=== PATIENT | female | born 1980 | race Caucasian/White ===

== ENCOUNTER 2022-07-10 11:38 | Outpatient (CLI) | payer OTHER, SELFPAY ==
[2022-07-10 14:02] LABS: Basophils Absolute Auto 0.03 K/uL (0.00-0.30); Basophils Percent Auto 0.4 % (0.0-3.0); Eosinophils Absolute Auto 0.33 K/uL (0.00-0.50); Eosinophils Percent Auto 4.4 % (0.0-7.0); Hematocrit 42.2 % (33.0-51.0); Hemoglobin* 14.1 gm/dL (12.0-16.0); Immature Granulocytes Abs Auto 0.03 K/uL (0.00-0.30); Immature Granulocytes Pct Auto 0.4 %; Lymphocytes Percent Auto 26.6 % (20-44); Mean Corpuscular HGB Conc 33 gm/dL (32-36); Mean Corpuscular Hemoglobin 30 pg (26-34); Mean Corpuscular Volume 89 fL (80-100); Monocytes Percent Auto 5.2 % (0.0-11.0); Neutrophils Absolute Auto 4.74 K/uL (1.7-7.0); Platelet Count* 288 K/uL (140-440); RDW Coefficient of Variation % 11.8 % (11.5-15.5); Red Blood Count 4.75 m/uL (4.00-5.20); White Blood Count* 7.52 K/uL (4.50-11.00)
[2022-07-10 14:03] LABS: Slide Review Reflex No
[2022-07-10 14:19] LABS: Chloride* 103 mmol/L (96-114); Potassium* 4.2 mmol/L (3.6-5.1); Sodium* 141 mmol/L (135-149)
[2022-07-10 14:22] LABS: Blood Urea Nitrogen* 15 mg/dL (5-24); Carbon Dioxide* 26 mmol/L (20-32); Creatinine* 0.7 mg/dL (0.5-1.5); Estimated Glomerular Filt Rate 111 ml/min; Glucose* 83 mg/dL (60-115)
[2022-07-10 14:23] LABS: Calcium* 9.6 mg/dL (8.4-10.6); Vitamin D 25 Hydroxy* 51 ng/mL (30-80)
[2022-07-10 14:54] LABS: Vitamin B12* 527 pg/mL (243-894)
[2022-07-11 23:15] LABS: Estradiol Premenol Female 20 pg/mL
[2022-07-12 00:11] LABS: Free T3 2.9 pg/mL (2.5-4.3)
[2022-07-12 09:19] LABS: Folate, Serum >22.3 ng/mL (>=5.9)
[2022-07-14 10:39] LABS: Sex Hormone Binding Globulin 407 nmol/L (25-122); Testosterone Bioavailable 2.2 ng/dL (2.8-16.5); Testosterone, Free LC-MS/MS 0.8 pg/mL (1.1-5.8); Testosterone, LC-MS/MS 35 ng/dL (9-55)
[2022-07-14 15:33] LABS: Progesterone, HPLC-MS/MS 0.21 ng/mL
== END 2022-07-10 11:39 | disposition home or self-care (01) ==
PROVIDERS: PCP Family Medicine; Visit Provider Family Medicine
DX: R53.83 Other fatigue (principal); R63.5 Abnormal weight gain; N92.6 Irregular menstruation, unspecified
CPT/HCPCS: 80048; 82306; 82607; 82670; 82728; 82746; 84144; 84270; 84402; 84403; 84439; 84443; 84481; 85025

== ENCOUNTER 2023-10-05 10:29 | Outpatient (CLI) | payer OTHER, SELFPAY | END 2023-10-05 10:30 | disposition home or self-care (01) | PROVIDERS: PCP Family Medicine; Visit Provider Family Medicine | DX: Z13.220 Encounter for screening for lipoid disorders (principal); Z11.59 Encounter for screening for other viral diseases; Z13.228 Encounter for screening for other metabolic disorders; L50.9 Urticaria, unspecified | CPT/HCPCS: 80053; 80061; 86140; 86803 ==

== ENCOUNTER 2024-06-15 14:42 | Outpatient (CLI) | payer OTHER, SELFPAY ==
--- NOTE | 2024-06-15 14:40 | CRLHL7_ITS ---
For Patients: As a result of the Century Cures Act, medical imaging exams and procedure reports are released immediately into your electronic medical record. You may view this report before your referring provider. If you have questions, please contact your health care provider. BILATERAL SCREENING MAMMOGRAM WITH COMPUTER-AIDED DETECTION AND TOMOSYNTHESIS TECHNIQUE: CC, MLO and Implant displaced views were obtained. These mammographic images have been obtained using full-field digital technique. These mammographic images were interpreted with the benefit of computer-aided detection. Breast Tomosynthesis was used in this interpretation. COMPARISON FILM: Baseline. FINDINGS: The breasts are extremely dense, which lowers the sensitivity of mammography. IMPRESSION: There is no radiographic evidence for malignancy. ASSESSMENT: BI-RADS Category 2: Benign RECOMMENDATION: Routine screening mammogram in 1 year. A lay language report of this examination will be provided to the patient. Matthew Britt M.D. Diagnostic Radiologist [email or web address] SP/Dictated by: Matthew Britt MD @ 06/16/2024 8:36:00 AM (Electronically Signed)
== END 2024-06-15 14:43 | disposition home or self-care (01) ==
PROVIDERS: PCP Family Medicine; Visit Provider Family Medicine
DX: Z12.31 Encounter for screening mammogram for malignant neoplasm of breast (principal); R92.343 Mammographic extreme density, bilateral breasts
CPT/HCPCS: 77063; 77067

== ENCOUNTER 2025-01-19 15:44 | Outpatient (CLI) | payer OTHER, SELFPAY | END 2025-01-19 15:45 | disposition home or self-care (01) | PROVIDERS: PCP Family Medicine; Visit Provider Family Medicine | DX: Z00.01 Encounter for general adult medical examination with abnormal findings (principal); N92.6 Irregular menstruation, unspecified; L50.9 Urticaria, unspecified | CPT/HCPCS: 80053; 80061; 82670; 83001; 83002; 83520; 84144; 86140 ==